=== PATIENT | male | born 1975 | race Two or more races ===

== ENCOUNTER 2025-11-02 20:33 | Inpatient (IN) | payer BC, SELFPAY ==
[2025-11-02] VITALS (8 sets, daily range): BP systolic 191–246; BP diastolic 128–154; PULSE 98–128; RESP 14–93; TEMP 37.1; O2SAT 19–99; BMI 30.5
--- NOTE | 2025-11-02 20:38 | EKG_ITS ---
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
--- NOTE | 2025-11-02 20:38 | XR_ITS ---
Examination: CT brain head without contrast. 2-D sagittal coronal reconstructions Date and time of exam: November 02, 2025, 2041 hours INDICATIONS: Stroke alert, onset slurred speech dizziness left facial droop beginning 1900 hours this evening CTDI: vol (mGy): 53.7 DLP: (mGycm): 1063 Technique: Multiple CT axial sections of the brain have been obtained, 5 mm slice thickness. Contrast has not been administered. 2-D sagittal, coronal reconstructions have been obtained Low dose protocols were performed. One or more of the following dose reduction techniques were used; automated exposure control, adjustment of the mA and/or KV according to patient size, use of iterative reconstruction technique. Findings: No significant ventricular enlargement. Chronic microvascular white matter changes prominent Suspicious for 3 mm old infarct left brainstem pontine level Intra-axial or extra-axial hemorrhage density is not seen. No mass effect or midline shift Basal cisterns are not remarkable. Fourth ventricle is midline. Cranial vault intact. Impression: Negative for acute hemorrhage, mass effect or midline shift As clinically warranted, brain MRI MRA without contrast, stroke protocol, would best assess for demyelinating disease, acute ischemic change
--- NOTE | 2025-11-02 20:38 | XR_ITS ---
EXAMINATION: AP chest single view TECHNIQUE: AP portable upright chest single view Date and time: November 02, 2025, 2112 hours INDICATIONS: Stroke alert FINDINGS: Mild heart failure Mild enlargement cardiac contour Prominent vascular congestion with early septal edema Prominent osteopenia IMPRESSION: Mild heart failure
--- NOTE | 2025-11-02 20:38 | XR_ITS ---
Examination: CTA carotids with intravenous contrast CTA brain, head with intravenous contrast. 2-D sagittal, coronal reconstructions. 3-D reconstructions. Exam date and time: November 02, 2025, 2049 hours INDICATIONS: Stroke alert, onset focal neurologic deficits today including facial droop slurred speech dizziness CTDI: vol (mGy) 19.94 DLP: (mGycm) 536 Technique: Multiple CTA axial brain, head carotid images post intravenous contrast injection 100 cc, [id number]. 2-D sagittal, coronal reconstructions. 3-D reconstructions, 3-D post processing including vascular maximum intensity projection images. Low dose protocols were performed. One or more of the following dose reduction techniques were used; automated exposure control, adjustment of the mA and/or KV according to patient size, use of iterative reconstruction technique. Findings: No significant common carotid carotid bifurcation or internal carotid artery stenoses Dominant left vertebral artery with no critical stenoses Right thyroid cyst versus nodule, 27 mm Intracranial vertebral arteries basilar artery and posterior cerebral branches do fill 90% stenosis P2 segment right posterior cerebral artery Petrous juxtasellar supraclinoid portions internal carotid arteries fill M1 segments middle cerebral arteries middle cerebral artery trifurcation vessels anterior cerebral arteries fill with no large vessel occlusions IMPRESSION: No significant neck arterial stenoses No cerebral large vessel arterial occlusions or thrombus
--- NOTE | 2025-11-02 20:39 | EDNOTE_ITS ---
Neuro Symptoms Deficit-RME/HPI General Chief Complaint: Dizziness Stated Complaint: DIZZINESS, SLURRED SPEECH, FACIAL DROOP Time Seen by Provider: 11/02/25 20:50 Arrival date/time: 11/02/25 20:33 RME / HPI RME / HPI Narrative: See MDM for Dr. Tay's HPI Documentation. Related Data Home Medications ?Medication ?Instructions ?Recorded ?Confirmed No Known Home Medications 11/02/2510/22 Allergies Allergy/AdvReac Type Severity Reaction Status Date / Time No Known Allergies Allergy Verified 11/02/25 20:36 Review of Systems Review of Systems Systems Reviewed: All systems reviewed, normal except as documented Past Medical History Past Medical History CARDIAC: Positive Cardiac Disorders, Hypercholesterolemia and Hypertension ED Exam Narrative Physical exam: See MDM for Dr. Tay's Physical Exam Documentation. Course Quality Measures none Orders Category Date Time Status Bedside Blood Glucose NOW Care 11/02/25 20:38 Active Global Sales Director NOW Care 11/02/25 20:38 Active Continuous Pulse Oximetry NOW Care 11/02/25 20:38 Completed EKG (ED ONLY) *Do not use* NOW Care 11/02/25 20:38 Completed In and Out Catheter NEEDED Care 11/02/25 20:38 Active Insert IV NOW Care 11/02/25 20:38 Active NIH Stroke Scale now Care 11/02/25 20:38 Active NPO NOW Care 11/02/25 20:38 Active Nurse Swallow Screen x1 Care 11/02/25 20:38 Active Consult to Neurology / Tele-Neurology Routine Cons 11/02/25 20:[address] angio stroke protocol Stat Exams 11/02/25 20:[address] stroke protocol Stat Exams 11/02/25 20:38 Completed EKG (ED Only) Stat Exams 11/02/25 20:38 Draft XR chest 1V portable Stat Exams 11/02/25 20:38 Completed A1C [Glycohemoglobin w (eAG)] Routine Lab 11/02/25 20:54 Completed Alcohol, Blood Medical Stat Lab 11/02/25 20:54 Completed B-Type Natriuretic Peptide Stat Lab 11/02/25 20:54 Completed CBC Stat Lab 11/02/25 20:54 Completed Comprehensive Metabolic Panel Stat Lab 11/02/25 20:54 Completed Drug Screen,Urine Stat Lab 11/02/25 22:31 Completed Magnesium Stat Lab 11/02/25 20:54 Completed Partial Thromboplastin Time Stat Lab 11/02/25 20:54 Completed Prothrombin Time with INR Stat Lab 11/02/25 20:54 Completed TSH [Thyroid Stimulating Hormone] Stat Lab 11/02/25 20:54 Completed Troponin I Stat Lab 11/02/25 20:54 Completed Urinalysis, C/S if Indicated Stat Lab 11/02/25 22:31 Completed Aspirin Med 11/02/25 21:16 Discontinued 325 mg PO X1 ONE Clopidogrel [Plavix] Med 11/02/25 21:16 Discontinued 300 mg PO X1 ONE Labetalol* IV [Trandate IV] Med 11/02/25 20:38 Discontinued 10 mg IVP Q15M PRN Labetalol* IV [Trandate IV] Med 11/02/25 21:50 Discontinued 10 mg IVP Q15M PRN Ondansetron Inj [Zofran Inj] Med 11/02/25 20:38 Discontinued 4 mg IVP Q4HR PRN niCARdipine/NS 20MG IVPB [Cardene Ivpb] Med 11/02/25 20:38 Discontinued 20 mg in 200 ml IV 5 mg/hr Oxygen Delivery NOW RT 11/02/25 20:38 Completed Vital Signs Vital signs: Vital Signs Pulse Rate 128 H 11/02/25 20:42 Respiratory Rate 18 11/02/25 20:42 Blood Pressure 246/154 H 11/02/25 20:42 Pulse Oximetry (%) 99 11/02/25 20:42 Oxygen Delivery Method Room Air 11/02/25 20:42 Neuro Symptoms / Deficit MDM Narrative MDM Narrative:: This section includes all my notes and documentations, including HPI, PE, and ED course. Mitchel Tay MD HPI: 50 y/o male with HTN and Hypercholesterolemia (no meds for over 2 years) here with about a week history of left facial droop. 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 No visual impairment. No loss of power in the arms or legs. No chest pain. No other complaints. ROS: All negative except as documented in HPI. Physical Exam: General: Alert and oriented. High BP noted. Eyes: Conjunctivae and lids clear. EOMI. PERRL. ENT: No nasal congestion. Neck: Supple. No carotid bruit. No JVD. Heart: RRR. Lungs: No respiratory distress. Good air movement. No rhonchi, wheezing, rales. Abdomen: Soft and nontender. Skin: Warm and dry. Neuro: Alert and oriented X 3. Left-sided lower facial droop noted. Other cranial nerves grossly intact. No obvious peripheral motor deficits. I reviewed all diagnostic test results: My interpretation of the EKG is: Sinus rhythm (91 bpm) with nonspecific ST-T johnna nges. My interpretation of the chest x-ray is no acute findings. My review of the Head/Brain CT report is infarct at brainstem, pontine level. My review of the Head/Neck CTA report is: No acute findings. Blood tests and urine tests remarkable for K 3.0 and LFT elevation. At this point, diagnoses include: CVA (cerebral vascular accident) Hypertensive emergency Hypokalemia LFT elevation Treatment here included: Aspirin 325 mg PO Plavix 300 mg PO Labetalol IV as needed I discussed the case with telehealth neurologist. About the presentation and exam and diagnostics and treatments here. Recommended admission for further care. I discussed the case with our hospitalist. About the presentation and exam and diagnostics and treatments here. And need of further care in the hospital. Will accept the patient. Mitchel Tay MD Patient data External records reviewed:: [facility] previous records (No prior ED records available for review) Clinical information provided by:: patient Social determinants that could affect healthcare access:: none Patient has the following chronic illnesses:: HTN, Hypercholesterolemia, How is presenting disease/condition affected by chronic disease/condition?: exacerbated by Evaluation data The following diagnostics were reviewed and interpreted by me:: lab results, radiology exam(s) and EKG tracing(s) (My interpretation of the EKG is: Sinus rhythm (91 bpm) with nonspecific ST-T changes. Mitchel Tay MD) Lab and/or radiology exams considered but not ordered:: None Interpretation Summary: I reviewed all diagnostic test results: My interpretation of the EKG is: Sinus rhythm (91 bpm) with nonspecific ST-T changes. My interpretation of the chest x-ray is no acute findings. My review of the Head/Brain CT report is infarct at brainstem, pontine level. My review of the Head/Neck CTA report is: No acute findings. Blood tests and urine tests remarkable for K 3.0 and LFT elevation. Medications / Prescriptions Medications or Prescriptions considered but not ordered:: None Medication administrations:: Medication Administration History Acetaminophen (Acetaminophen 325 Mg Tablet) 650 mg PO Q6H PRN PRN Reason: Fever >101.5 Stop: 12/02/25 21:50 Aspirin (Aspirin Ec 81 Mg Tabec) 81 mg PO QDAY [facility] Stop: 12/03/25 08:59 Last Admin: 11/03/25 09:30 Dose: 81 mg Documented By: SUMI Atorvastatin Calcium (Atorvastatin Calcium 20 Mg Tablet) 80 mg PO HS [facility] Stop: 12/02/25 21:54 Last Admin: 11/03/25 19:58 Dose: 80 mg Documented By: Admin: 11/02/25 22:13 Dose: 80 mg Documented By: MICHAEL Clopidogrel Bisulfate (Clopidogrel Bisulfate 75 Mg Tablet) 75 mg PO QDAY [facility] Stop: 12/03/25 08:59 Last Admin: 11/03/25 09:30 Dose: 75 mg Documented By: SUMI Enoxaparin Sodium (Enoxaparin Sod Inj 40 Mg/0.4 Ml Syringe) 40 mg SC QDAY [facility] Stop: 11/17/25 08:59 Last Admin: 11/03/25 09:30 Dose: 40 mg Documented By: SUMI Labetalol HCl (Labetalol Inj 5 Mg/Ml Vial 4 Ml) 10 mg IVP Q2HR PRN PRN Reason: SBP>220 or DBP>120 Stop: 12/03/25 00:00 Last Admin: 11/03/25 00:53 Dose: 10 mg Documented By: MAHAD Comments: MD VELASQUEZ'D EARLY ADMIN DUE TO BP OF 186/135. Admin: 11/02/25 23:17 Dose: 10 mg Documented By: MICHAEL Ondansetron HCl (Ondansetron Inj 2 Mg/Ml Inj 2 Ml) 4 mg IVP Q4HR PRN PRN Reason: NAUSEA OR VOMITING Stop: 12/02/25 21:50 Discontinued Medications Aspirin (Aspirin 325 Mg Tablet) 325 mg PO X1 ONE Stop: 11/02/25 21:17 Last Admin: 11/02/25 21:26 Dose: 325 mg Documented By: MCIHAEL Clopidogrel Bisulfate (Clopidogrel Bisulfate 75 Mg Tablet) 300 mg PO X1 ONE Stop: 11/02/25 21:17 Last Admin: 11/02/25 21:26 Dose: 300 mg Documented By: MICHAEL Enalaprilat (Enalaprilat Inj 1.25 Mg/Ml Vial) 0.625 mg IVP X1 ONE Stop: 11/02/25 23:12 Last Admin: 11/02/25 23:14 Dose: Not Given Documented By: MICHAEL Non-Admin Reason: Cancelled by Provider Enalaprilat (Enalaprilat Inj 1.25 Mg/Ml Vial) 1.25 mg IVP X1 ONE Stop: 11/02/25 23:13 Last Admin: 11/02/25 23:17 Dose: 1.25 mg Documented By: MICHAEL Nicardipine/Sodium Chloride (Cardene Ivpb) 20 mg in 200 mls @ 50 mls/hr IV .Q4H ONE; Protocol Stop: 11/03/25 00:37 Last Admin: 11/02/25 21:32 Dose: Not Given Documented By: MICHAEL Non-Admin Reason: Cancelled by Provider Lactated Ringer's (Lactated Ringers) 1,000 mls @ 1,000 mls/hr IV .Q1H ONE Stop: 11/02/25 22:53 Last Infusion: 11/03/25 20:46 Dose: Infused Documented By: Admin: 11/02/25 22:13 Dose: 1,000 mls/hr Documented By: MICHAEL Labetalol HCl (Labetalol Inj 5 Mg/Ml Vial 4 Ml) 10 mg IVP Q15M PRN PRN Reason: hypertension Last Admin: 11/02/25 21:26 Dose: 10 mg Documented By: MICHAEL Comments: PER NEUROLOGIST TO KEEP BP LESS THAN 220/120 Labetalol HCl (Labetalol Inj 5 Mg/Ml Vial 4 Ml) 10 mg IVP Q15M PRN PRN Reason: hypertension Last Admin: 11/02/25 21:41 Dose: 10 mg Documented By: MICHAEL Ondansetron HCl (Ondansetron Inj 2 Mg/Ml Inj 2 Ml) 4 mg IVP Q4HR PRN PRN Reason: NAUSEA OR VOMITING Stop: 12/02/25 20:37 Potassium Chloride (Potassium Chloride 10% 20 Meq/15 Ml Udc) 40 meq PO X1 ONE Stop: 11/02/25 21:54 Last Admin: 11/02/25 22:13 Dose: 40 meq Documented By: MICHAEL Treatment here FROM ME included: Aspirin 325 mg PO Plavix 300 mg PO Labetalol IV as needed Consultations Consultation(s) initiated? (list below): Yes Consultation #1 (Physician, Specialty, Details): I discussed the case with telli-neurologist. About the presentation and exam and diagnostics and treatments here. Recommended admission and further care. Time: 20:35 Consultation #2 (Physician, Specialty, Details): I discussed the case with our hospitalist. About the presentation and exam and diagnostics and treatments here. And need of further care in the hospital. Will accept the patient. Time: 21:30 Diagnosis Neuro Differential Diagnosis: convulsions, delirium, subarachnoid hemorrhage, peripheral neuropathy, cerebrovascular accident and transient cerebral ischemia Most likely diagnosis given after review of the tests above:: CVA (cerebral vascular accident) Hypertensive emergency Hypokalemia LFT elevation Admission Indicated Admission indicated?: indicated Explain why admission is indicated or not indicated:: CVA (cerebral vascular accident) Hypertensive emergency Hypokalemia LFT elevation Admission Request Was there a request for admission?: Yes Admission Attestation Admission request attestation: Discussed case with Hospitalist service regarding admission. Discussed patients ED course, exam findings, labs, and radiology results. Agreed to accept the patient for admission. Disposition Plan Disposition Plan: Admit Critical Care Time Critical Care Time Critical Care Time: Yes Total Critical Care Time (min.): 36 Attestation: Due to a high probability of clinically significant, life threatening deterioration, the patient required my highest level of preparedness to intervene emergently and I personally spent this critical care time directly and personally managing the patient. This critical care time included obtaining a history; examining the patient; ordering and review of studies; arranging urgent treatment with development of a management plan; evaluation of patient's response to treatment; frequent reassessment; and discussions with family and other providers. It was exclusive of separately billable procedures and treating other patients and teaching time. Mitchel Tay MD Discharge Plan Plan Patient Disposition: Admit Acute Care w/in Hospital Problem List Clinical Impression: CVA (cerebral vascular accident), Hypertensive emergency, Hypokalemia, LFT elevation
[2025-11-02 21:16] LABS: Basophils # (Auto) 0.2 Thou/mm3 (0.0-0.2); Basophils % (Auto) 2 % (0-2.5); Eosinophils # (Auto) 0.3 Thou/mm3 (0.0-0.5); Eosinophils % (Auto) 3 % (0-10); Hematocrit 47.7 % (41.0-53.0); Hemoglobin 16.3 g/dL (13.5-16.0); Immature Granulocytes Auto 0.02 Thou/mm3 (0.00-0.00); Lymphocytes # (Auto) 3.0 Thou/mm3 (1.0-4.8); Lymphocytes % (Auto) 34 % (10-50); Mean Corpuscular HGB Conc 34.2 g/dl (31.0-37.0); Mean Corpuscular Hemoglobin 30.8 pg (25.0-35.0); Mean Corpuscular Volume 90 fL (80-100); Monocytes # (Auto) 0.8 Thou/mm3 (0.0-0.8); Monocytes % (Auto) 9 % (0-12); Neutrophils # (Auto) 4.8 Thou/mm3 (1.8-7.7); Neutrophils % (Auto) 53 % (37-80); Nucleated Red Blood Cell # 0.00 Thou/mm3 (0.00-0.00); Nucleated Red Blood Cell % 0 /100 WBC (0); Platelet Count 268 Thou/mm3 (140-440); RDW Standard Deviation 43.7 fL (35.1-43.9); Red Blood Count 5.30 Miln/mm3 (4.50-5.90); White Blood Count 9.0 Thou/mm3 (3.8-10.6)
[2025-11-02] MEDS: CLOPIDOGREL BISULFATE 75 MG TABLET 300 MG PO (21:26)
--- NOTE | 2025-11-02 21:26 | PD.TNEURO ---
Tele Neuro Consultation Consultation Date 11/02/25 Most Recent Vital Signs Last Vital Signs Pulse 107 H 11/02/25 21:23 Resp 14 11/02/25 21:23 BP 246/154 H 11/02/25 20:42 Pulse Ox 99 11/02/25 20:42 O2 Del Method Room Air 11/02/25 20:42 Consultation Narrative [facility] Patient Name:???Oh Castaneda Date of :???1975 Identification Number:??? Date of Service:???11/02/2025 20:37:23 Diagnosis:?R47.81 - Slurred speech ?R29.810 - Facial numbness/ Facial weakness ?R42 - Dizziness/ Vertigo/ Giddiness ?I63.89 - Cerebrovascular accident (CVA) due to other mechanism ([facility]) Impression: ?50yo man with history of HTN not on medications presents with dizziness, left facial droop. Dizziness is new tonight but he has noticed left facial droop for the past week. NCCT with 3mm focus right aure that could explain symptoms for the past week as a lacunar subacute infarct but is not definitive. Not a candidate for thrombolytics given the noticed symptoms for the past week which likely represent subacute stroke with some worsening tonight. Likely BP elevated for a while. CTA pending, if negative recommend permissive HTN to <220/120 overnight, start aspirin and plavix, needs admission for stroke work up with MRI brain w/o, check 2d echo. Our recommendations are outlined below. Recommendations: ? Stroke/Telemetry Floor ? Neuro Checks (Q4) ? Bedside Swallow Eval ? DVT Prophylaxis ? Head of Bed 30 Degrees ? Euglycemia and Avoid Hyperthermia (PRN Acetaminophen) ? Bolus with Clopidogrel 300 mg bolus x1 and initiate dual antiplatelet therapy with Aspirin 81 mg daily and Clopidogrel 75 mg daily ? Antihypertensives PRN if Blood pressure is greater than 220/120 or there is a concern for End organ damage/contraindications for permissive HTN. If blood pressure is greater than 220/120 give labetalol PO or IV or Vasotec IV with a goal of 15% reduction in BP during the first 24 hours. ?MRI brain w/o ?2d echo Sign Out: ? Discussed with Emergency Department Provider Advanced Imaging: Advanced imaging has been ordered. Results pending. Metrics: Last Known Well: 10/25/2025 20:00:00 Arrival Time: 11/02/2025 20:33:00 Activation Time: 11/02/2025 20:37:22 Initial Response Time: 11/02/2025 20:42:56Symptoms: dizziness, facial droop. Initial patient interaction: 11/02/2025 20:53:50 NIHSS Assessment Completed: 11/02/2025 20:55:03Patient is not a candidate for Thrombolytic. Thrombolytic Medical Decision: 11/02/2025 20:55:03Patient was not deemed candidate for Thrombolytic because of following reasons: LKW outside 4.[address] Head: CT head unremarkable for acute infarction or hemorrhage per Radiology: negative per radiologist I personally reviewed all the CT images that were available to me and it showed: punctate hypodensity right aure, no ICH, significant WM disease Primary Provider Notified of Diagnostic Impression and Management Plan on: 11/02/2025 21:19:50 History of Present Illness:Patient is a 50 year old Male. Patient was brought by private transportation with symptoms of dizziness, facial droop. 50yo man with history of HTN not on medications presents with dizziness, left facial droop. He reports onset of dizziness at 8pm tonight which has persisted. Family noticed his speech was slurred on a phone call and took him to the ED for evaluation. Patient reports last he noticed drooping in the left side of his face along with some numbness. He was hoping it would go away but he feels like it persisted at least a week and is vague about if any of this was present earlier today as well. He lives by himself. He has not had the dizziness before however. He is not taking any medications presently including no antiplatelet agents. He last saw his PCP 2 years ago and has not been taking any antihypertensives. His BP has not been checked in more than a year. Past Medical History: ?Hypertension Medications: No Anticoagulant use? No Antiplatelet use Reviewed EMR for current medications Allergies:? Reviewed Social History: Drug Use: No Family History: There Is Family History Of:mother with history of stroke There is no family history of premature cerebrovascular disease pertinent to this consultation ROS : 14 Points Review of Systems was performed and was negative except mentioned in HPI. Past Surgical History: There Is No Surgical History Contributory To Today?s Visit Examination: BP(246/154),?Pulse(128),?Blood Glucose(137) 1A: Level of Consciousness - Alert; keenly responsive?+ 0 1B: Ask Month and Age - Both Questions Right?+ 0 1C: Blink Eyes & Squeeze Hands - Performs Both Tasks?+ 0 2: Test Horizontal Extraocular Movements - Normal?+ 0 3: Test Visual Cruz - No Visual Loss?+ 0 4: Test Facial Palsy (Use Grimace if Obtunded) - Partial paralysis (lower face)?+ 2 5A: Test Left Arm Motor Drift - No Drift for 10 Seconds?+ 0 5B: Test Right Arm Motor Drift - No Drift for 10 Seconds?+ 0 6A: Test Left Leg Motor Drift - No Drift for 5 Seconds?+ 0 6B: Test Right Leg Motor Drift - No Drift for 5 Seconds?+ 0 7: Test Limb Ataxia (FNF/Heel-Nascimento) - No Ataxia?+ 0 8: Test Sensation - Mild-Moderate Loss: Less Sharp/More Dull?+ 1 9: Test Language/Aphasia - Normal; No aphasia?+ 0 10: Test Dysarthria - Mild-Moderate Dysarthria: Slurring but can be understood?+ 1 11: Test Extinction/Inattention - No abnormality?+ 0 NIHSS Score:?4 NIHSS Free Text :?left facial droop, mild dysarthria, inconsistent on if sensation is reduced left facem eye closure is symmetric Pre-Morbid Modified Garvin Scale: 0 Points = No symptoms at all Spoke with :?Dr. Tay This consult was conducted in real time using interactive audio and video technology. Patient was informed of the technology being used for this visit and agreed to proceed. Patient located in hospital and provider located at home/office setting. Patient is being evaluated for possible acute neurologic impairment and high probability of imminent or life-threatening deterioration. I spent total of 45 minutes providing care to this patient, including time for face to face visit via telemedicine, review of medical records, imaging studies and discussion of findings with providers, the patient and/or family. Dr Teo Lee [facility] For Inpatient follow-up with [facility] physician please call [facility] at . As we are not an outpatient service for any post hospital discharge needs please contact the hospital for assistance. If you have any questions for the [facility] physicians or need to reconsult for clinical or diagnostic changes please contact us via [facility] at . Non-radiologist review of imaging performed to assist with emergent clinical decision-making. Remote physician workstations do not possess the same resolution, calibration, or diagnostic capabilities as hospital-based radiology reading stations, and formal radiologist read is necessary. Signature :Musa Lee
[2025-11-02 21:27] LABS: INR 1.0 (0.9-1.3); Partial Thromboplastin Time 22.9 Seconds (22.0-36.0); Prothrombin Time 10.3 Seconds (9.0-12.2)
[2025-11-02 21:34] LABS: B-Type Natriuretic Peptide 57 pg/mL (0-100)
[2025-11-02 21:43] LABS: Alanine Aminotransferase 71 U/L (10-49); Albumin, Serum 4.8 gm/dL (3.5-5.0); Albumin/Globulin Ratio 1.8 (1.2-2.2); Alcohol, Blood Medical < 3.0 mg/dL (0-10.0); Alkaline Phosphatase 175 U/L (46-116); Anion Gap 14 (7-16); Aspartate Amino Transferase 48 U/L (0-34); BUN/Creatinine Ratio 11 Ratio (12-20); Bilirubin,Total 1.1 mg/dL (0.3-1.2); Blood Urea Nitrogen 13 mg/dL (9-23); Calcium 9.7 mg/dL (8.3-10.6); Calcium (Corrected) 9.7 mg/dL (8.5-10.1); Carbon Dioxide 23.2 mMol/L (20.0-31.0); Chloride 105 mMol/L (98-107); Creatinine (Component) 1.2 mg/dL (0.6-1.3); Estimated Creatinine Clearance 87.5 mL/min (>60); Globulin 2.7 gm/dL (2.3-3.5); Glucose 138 mg/dL (74-106); Magnesium 2.2 mg/dL (1.6-2.6); Osmolality,Calculated 285 (275-295); Potassium 3.0 mMol/L (3.4-5.1); Sodium 142 mMol/L (136-145); Thyroid Stimulating Hormone 0.75 uIU/mL (0.55-4.78); Total Protein 7.5 gm/dL (5.7-8.2); Troponin I < 0.020 ng/mL (0.0-0.045); eGFR > 60 See Note
--- NOTE | 2025-11-02 21:48 | ESHP_ITS ---
Documentation for date of: 11/02/25 HPI - Hospitalist History of Present Illness History of present illness: 50 yo man with history of HTN not on medications presents with dizziness, left facial droop. Dizziness started today while returning from work, but reprots left facial droop for the past week, along with left side facial droop. Patient denies any other neurosymptoms; visual changes, motor strength/sensation changes, chest pain/palpitations/shortness of breath. In the ED patient's vitals were noted for BP 250/150, HR 128, labs showed normal CBC, potassium 3, AST 48, ALT 71, ALP 175, EKG showed sinus rhythm, head CT was negative for acute hemorrhage, mass effect or midline shift but showed lesions suspicious for old infarct in left brainstem, CTA was negative for LVO/thrombus. Neurology was consulted in the ED and recommended admitting patient for CVA workup. Review of Systems Review of Systems Systems Reviewed: All systems reviewed, normal except as documented Past Medical History Past Medical History CARDIAC: Positive Cardiac Disorders, Hypercholesterolemia and Hypertension Meds Home Medications and Allergies Home Medications ?Medication ?Instructions ?Recorded ?Confirmed ?Type No Known Home Medications 11/02/2510/22 History Allergies Allergy/AdvReac Type Severity Reaction Status Date / Time No Known Allergies Allergy Verified 11/02/25 20:36 Exam Vital Signs Pulse Resp BP Pulse Ox O2 Del Method 107 H 14 214/132 H 19 L Room Air 11/02/25 21:23 11/02/25 21:23 11/02/25 21:30 11/02/25 21:30 11/02/25 20:42 Narrative General: Well appearing, well nourished, in no distress, normal mood and affect. HEENT: Normocephalic, atraumatic, anicteric, EOM intact, PERRLA, moist mucous membranes. Heart: RRR, no murmur or gallop. Lungs: Clear to auscultation with equal breath sounds bilaterally. Abdomen: Bowel sounds normal, soft, non distended, no tenderness or guarding, no CVA tenderness Extremities: Sensation, circulation &motor function intact and equal in all extremities. Neurologic: Alert and oriented to name, place and date of , CN II-XII intact, able to move all extremities, DTRs normal, left facial droop noted. Skin: Warm, dry, no rashes or ecchymosis noted. Results - Hospitalist Labs Diagrams: 11/02/25 20:54 11/02/25 20:54 Labs: Short CBC 11/02/25 Range/Units 20:54 WBC 9.0 (3.8-10.6) Thou/mm3 Hgb 16.3 H (13.5-16.0) g/dL Hct 47.7 (41.0-53.0) % Plt Count 268 (140-440) Thou/mm3 BMP 11/02/25 20:54 Sodium 142 Potassium 3.0 L Chloride 105 Carbon Dioxide 23.2 BUN 13 Creatinine 1.2 Glucose 138 H Calcium 9.7 Cardiac Enzymes 11/02/25 Range/Units 20:54 Troponin I < 0.020 (0.0-0.045) ng/mL Liver Function 11/02/25 Range/Units 20:54 Total Bilirubin 1.1 (0.3-1.2) mg/dL AST 48 H (0-34) U/L ALT 71 H (10-49) U/L Alkaline Phosphatase 175 H (46-116) U/L Albumin 4.8 (3.5-5.0) gm/dL Assessment & Plan -Hospitalist Additional Plan Additional Plan: 50 yo man with history of HTN not on medications presents with dizziness, left facial droop admitted for CVA workup. # Suspected Ischemic Stroke # CVA vs TIA Subacute, likely lacunar/pontine per tele neuro 50M with one week of left facial droop and acute dizziness/slurred speech, NIHSS 4 CT/CTA without acute large vessel occlusion per radiology read, now neurologically improved except for residual facial droop. CTA findings with 90% stenosis P2 segment right posterior cerebral artery CT findings with Suspicious for 3 mm old infarct left brainstem pontine level MRI LDL 105, above goal for secondary stroke prevention. Plan: * Continue dual antiplatelet therapy: Aspirin 81 mg daily, Clopidogrel 75 mg daily. * Continue atorvastatin 80 mg nightly * MRI brain without contrast pending, follow up results * 2D echocardiogram pending * Telemetry monitoring * Neuro checks Q4h * Head of bed at 30 * Maintain euglycemia and normothermia * PT and Speech evaluation per neuro # Hypertensive Urgency # Uncontrolled Hypertension Presented with severe hypertension likely longstanding Currently improved without evidence of acute end-organ damage. Plan: * Continue permissive hypertension in acute stroke window * PRN antihypertensives only if BP >220/120 * Plan to initiate long-term oral antihypertensive regimen after acute stroke period (23:00) * Criminal Justice Social Worker on medication compliance # Hypokalemia, Resolved Initial potassium 3.0, corrected. today K 4.3 Plan: * No further repletion needed * Continue to monitor BMP # Mild Transaminitis, Improving LFTs down-trending, likely related to hypertensive emergency or ischemic stress. Plan: * Continue to trend CMP * No acute intervention Health Maintenance: Diet: Dysphagia 3 DVT Prophylaxis: Lovenox Code Status: Full code Disposition: Pending MRI brain and echocardiogram results Quality Measures Quality Measures VTE prophylaxis and stroke Suspected type of Stroke: Acute Ischemic Last known well (date): 10/29/25 Tenecteplase given: Reason(s) Tenecteplase not given: Outside the time window not given Rehab services: PT evaluation ordered VTE Prophylaxis: pharmaceutical Antithrombotic by day 2:: ordered Statin ordered: >75 y/o moderate or high intensity dose Anticoagulation ordered for A-fib or flutter (current or hx): not indicated
--- NOTE | 2025-11-02 21:53 | ECHO_ITS ---
Patient Info Name: Oh Castaneda Age: 50 years : 1975 Gender: Male Ht: 180 cm Wt: 99 kg BSA: 2.26 m2 BP: 176 / 121 mmHg HR: 76 bpm Exam Date: 11/04/2025 10:02 AM Admit Date: 11/02/2025 Site: Room Number: 268 Patient Status: I Exam Type: CA echo doppler complete Job Placement Counselor: Lori Trejo Ordering Physician: De Avalos Study Info Indications CVA work up - Contrast/Agitated Saline Contrast/Ag. Saline: Agitated Saline Amount: --- ml IV Access Condition: patent with no signs of infiltration Primary Location: S2NX Left Ventricular Outflow Tract Name Value Normal LVOT 2D LVOT Diameter 2.3 cm LVOT Doppler LVOT Peak Velocity 92 cm/s LVOT Mean Gradient 2 mmHg LVOT VTI 19 cm LVOT VTI/AV VTI Ratio 0.6 LVOT Stroke Volume 77 ml Pulmonic Valve Name Value Normal PV Doppler PV Peak Velocity 90 cm/s Mitral Valve Name Value Normal MV Doppler MV Decel [place] 262 cm/s2 MV PHT 60 ms MV Area (PHT) 3.6 cm2 4.0-5.0 MV Diastolic Function MV E Peak Velocity 54 cm/s MV A Peak Velocity 78 cm/s MV E/A 0.7 MV Annular TDI MV Septal e' Velocity 5.8 cm/s MV E/e' (Septal) 9.4 MV Lateral e' Velocity 9.8 cm/s MV E/e' (Lateral) 5.5 MV e' Average 7.78 cm/s MV E/e' (Average) 7.5 Tricuspid Valve Name Value Normal TV Regurgitation Doppler TR Peak Velocity 182 cm/s Estimated PAP/RSVP RA Pressure 3 mmHg <=5 PA Systolic Pressure 16 mmHg <36 RV Systolic Pressure 16 mmHg <36 TV Annular TDI TV Lateral Irena s' Velocity 12.9 cm/s >=9.5 Aorta Name Value Normal Thoracic Aorta Distal Ao Arch Diameter 3.7 cm Aortic Valve Name Value Normal AV 2D/MM AV Cusp Sep (MM) 2.2 cm AV Doppler AV Peak Velocity 149 cm/s AV Mean Gradient 6 mmHg AV VTI 29 cm AV Area (Cont Eq VTI) 2.6 cm2 >=3.0 AV Area (Cont Eq Rios) 2.6 cm2 AV DI (Rios) 0.61 AV Regurgitation 2D LVOT Area 4.2 cm2 AV Regurgitation Doppler AR Decel [place] 249 cm/s2 AR PHT 320 ms Ventricles Name Value Normal LV Dimensions 2D/MM IVS Diastolic Thickness (2D) 1.4 cm 0.6-1.0 LVID Diastole (2D) 4.3 cm 4.2-5.8 LVIW Diastolic Thickness (2D) 1.4 cm 0.6-1.0 LVID Systole (2D) 3.1 cm 2.5-4.0 LVOT Diameter 2.3 cm LV Mass (2D Cubed) 232.23 g 88.00-224.00 LV Mass Index (2D Cubed) 103 g/m2 49-115 Relative Wall Thickness (2D) 0.65 <=0.42 IVS/LVIW Diastolic Thickness (2D) 1.00 0.00-1.50 LV Fractional Shortening/Ejection Fraction 2D/MM LV Fractional Shortening (2D) 28 % 25-43 LV EF (2D Teichholz) 54 % RV Dimensions 2D/MM TV Lateral Irena s' Velocity 12.9 cm/s >=9.5 Atria Name Value Normal LA Dimensions LA Volume (4C A-L) 26 ml LA Volume (BP A-L) 38 ml Left Ventricle Left ventricular chamber dimension is normal. Left ventricular systolic function is normal with visually estimated ejection fraction of 55-60%. There is moderate concentric hypertrophy noted in the left ventricle. Left ventricular segmental wall motion is normal. There is grade I diastolic dysfunction in the left ventricle. Right Ventricle Right ventricular chamber dimension is normal. Right ventricular systolic function is normal. Left Atrium Left atrial chamber dimension is mildly enlarged. Right Atrium Right atrial chamber dimension is normal. Aortic Valve The aortic valve is trileaflet. There is no aortic valve sclerosis. There is no aortic valve stenosis with a peak velocity of 149 cm/s, mean gradient of 6 mmHg, and aortic valve area of 2.6 cm2. There is moderate aortic valve regurgitation. Pulmonic Valve The pulmonic valve is normal. There is no pulmonic valve stenosis. There is no pulmonic regurgitation. Mitral Valve The mitral valve has normal leaflets. There is no mitral valve stenosis. There is trace mitral valve regurgitation. Tricuspid Valve The tricuspid valve leaflets are normal. There is no tricuspid valve stenosis. There is trace tricuspid valve regurgitation. No pulmonary hypertension, estimated pulmonary arterial systolic pressure is 16 mmHg and systemic blood pressure of 176 mmHg in systole. Pericardium/Pleural The pericardium appears normal. There is trivial pericardial effusion with no tamponade. No pleural effusion visualized. Inferior Vena Cava Normal inferior vena cava with >50% collapse upon inspiration consistent with normal right atrial pressure, 3 mmHg. Aorta The aortic measurements are indexed to age and body surface area. The aortic root at the sinus of Valsalva is not well visualized. The prox ascending aorta is not well visualized. The descending aortic arch is dilated measuring 3.7 cm. Summary 1. Left ventricle size is normal and systolic function is normal. Estimated ejection fraction is 55-60%. There is grade I diastolic dysfunction. There is moderate concentric hypertrophy noted. 2. Right ventricle chamber size is normal and systolic function is normal. Estimated RVSP is 16 mmHg. 3. There is moderate aortic valve regurgitation. 4. There is trace tricuspid valve regurgitation. 5. The left atrium is mildly enlarged. The right atrium is normal. 6. Normal IVC with estimated RA pressure 3 mmHg. 7. NEGATIVE BUBBLE STUDY No evidence of PFO. Report Signatures Finalized by Melissa Emery on 11/04/2025 02:57 PM
[2025-11-02] MEDS: ATORVASTATIN CALCIUM 20 MG TABLET 80 MG PO (22:13)
[2025-11-02] MEDS: POTASSIUM CHLORIDE 10% 20 MEQ/15 ML UDC 40 MEQ PO (22:13)
[2025-11-02] MEDS: RINGERS LACTATED 1000 ML 1,000 ML IV (22:13)
[2025-11-02 22:16] LABS: Glucose Estimated Average 108 mg/dL (80-131); Hemoglobin A1C 5.4 % Hgb (4.8-6.0)
[2025-11-02 22:36] LABS: Collection Type, Urine Clean Catch; Squamous Epithelial Cell,Urine 0 /hpf (0-5)
[2025-11-02 22:40] LABS: Bilirubin,Urine Negative (Negative); Blood,Urine 2+ (Negative); Clarity,Urine Clear (Clear/Hazy); Color,Urine Lt-Yellow (Lt Yel-Yel); Culture Indicated,Urine Not Indicated; Glucose, Urine Trace (Negative); Ketones,Urine Negative (Negative); Leukocyte Esterase,Urine Negative (Negative); Nitrite,Urine Negative (Negative); PH,Urine 7.0 (5.0-7.0); Protein,Urine Trace (Neg - Trace); RBC,Urine 40 /hpf (0-3); Specific Gravity,Urine 1.043 (1.001-1.035); Urobilinogen,Urine Negative mg/dL (0.0-1.0); WBC,Urine 1 /hpf (0-5)
[2025-11-02 22:46] LABS: Amphetamine/Methamp Scrn,U Negative (Negative); Barbiturate Screen,Urine Negative (Negative); Benzodiazepines Screen,Urine Negative (Negative); Benzoylecgonine Screen, Ur Negative (Negative); Fentanyl Screen,Urine Negative (Negative); Opiate Screen,Urine Negative (Negative); THC Screen,Urine Negative (Negative)
[2025-11-02] MEDS: ENALAPRILAT INJ 1.25 MG/ML VIAL IVP (23:17)
[2025-11-03] VITALS: BP 186/130; PULSE 95; PULSE 98; RESP 21; TEMP 37.4; O2SAT 95
--- NOTE | 2025-11-03 | XR_ITS ---
Examinations: MRI Brain without intravenous contrast. MRA brain without intravenous contrast. MRA carotids without intravenous contrast 3-D vascular reconstructions Date and time of exam: November 03, 2025, 0821 hours INDICATIONS: Stroke alert onset last week, left-sided facial droop and dizziness Technique: Multiple axial and sagittal images of the brain have been obtained MRA brain carotid images without contrast obtained, including 3-D postprocessing, vascular maximum intensity projection images Findings: Sell[place] is not enlarged. The optic chiasm and infundibular stalk are not remarkable. Prepontine and interpeduncular cisterns are not enlarged. No localized enlargement of the medulla or aure. Fourth ventricle and cerebellar tonsils normal in position. Subacute hemorrhage is not seen. Fourth ventricle is midline. Mass in the cerebellopontine angle region is not evident. 7th and 8th nerve complexes exhibits symmetry. Globes are symmetrical with no retro-orbital mass. Increased white matter signal very prominent Diffusion-weighted images demonstrate 4 mm focus of restricted diffusion right basal ganglia Mass-effect upon the ventricular system is not identified. MRA carotid images no critical carotid stenoses. MRA brain images no large vessel occlusions Impression: 4 mm focus restricted diffusion right basal ganglia most consistent with acute infarct Very prominent foci increased signal in the white matter seen with demyelinating disease, recommend neurology consultation and correlation with clinical findings
[2025-11-03 04:00] VITALS: BP 152/108; PULSE 87; PULSE 96; RESP 20; TEMP 37.1; O2SAT 95
[2025-11-03 06:00] VITALS: BMI 29.5
[2025-11-03 07:03] LABS: Basophils # (Auto) 0.1 Thou/mm3 (0.0-0.2); Basophils % (Auto) 1 % (0-2.5); Eosinophils # (Auto) 0.1 Thou/mm3 (0.0-0.5); Eosinophils % (Auto) 1 % (0-10); Hematocrit 45.0 % (41.0-53.0); Hemoglobin 15.2 g/dL (13.5-16.0); Immature Granulocytes Auto 0.04 Thou/mm3 (0.00-0.00); Lymphocytes # (Auto) 1.1 Thou/mm3 (1.0-4.8); Lymphocytes % (Auto) 12 % (10-50); Mean Corpuscular HGB Conc 33.8 g/dl (31.0-37.0); Mean Corpuscular Hemoglobin 30.6 pg (25.0-35.0); Mean Corpuscular Volume 91 fL (80-100); Monocytes # (Auto) 0.6 Thou/mm3 (0.0-0.8); Monocytes % (Auto) 7 % (0-12); Neutrophils # (Auto) 7.2 Thou/mm3 (1.8-7.7); Neutrophils % (Auto) 80 % (37-80); Nucleated Red Blood Cell # 0.00 Thou/mm3 (0.00-0.00); Nucleated Red Blood Cell % 0 /100 WBC (0); Platelet Count 241 Thou/mm3 (140-440); RDW Standard Deviation 44.1 fL (35.1-43.9); Red Blood Count 4.97 Miln/mm3 (4.50-5.90); White Blood Count 9.1 Thou/mm3 (3.8-10.6)
[2025-11-03 07:24] LABS: Alanine Aminotransferase 63 U/L (10-49); Albumin, Serum 4.3 gm/dL (3.5-5.0); Albumin/Globulin Ratio 1.7 (1.2-2.2); Alkaline Phosphatase 155 U/L (46-116); Anion Gap 10 (7-16); Aspartate Amino Transferase 42 U/L (0-34); BUN/Creatinine Ratio 11 Ratio (12-20); Bilirubin,Total 1.3 mg/dL (0.3-1.2); Blood Urea Nitrogen 11 mg/dL (9-23); Calcium 8.8 mg/dL (8.3-10.6); Calcium (Corrected) 8.8 mg/dL (8.5-10.1); Carbon Dioxide 25.0 mMol/L (20.0-31.0); Cardiac Risk Estimate 2.3 RATIO (4.0-6.7); Chloride 106 mMol/L (98-107); Cholesterol 201 mg/dL (132-200); Creatinine (Component) 1.0 mg/dL (0.6-1.3); Estimated Creatinine Clearance 103.4 mL/min (>60); Globulin 2.5 gm/dL (2.3-3.5); Glucose 127 mg/dL (74-106); HDL Cholesterol 86 mg/dL (40-60); LDL Cholesterol,Calculated 105 mg/dL (0-130); Osmolality,Calculated 282 (275-295); Potassium 4.3 mMol/L (3.4-5.1); Sodium 141 mMol/L (136-145); Total Protein 6.8 gm/dL (5.7-8.2); Triglycerides 49 mg/dL (30-150); eGFR > 60 See Note
[2025-11-03 08:00] VITALS: BP 169/115; PULSE 84; RESP 17; TEMP 36.9; O2SAT 98
[2025-11-03] MEDS: ASPIRIN EC 81 MG TABEC PO (09:30)
[2025-11-03] MEDS: ENOXAPARIN SOD INJ 40 MG/0.4 ML SYRINGE SC (09:30)
[2025-11-03] MEDS: CLOPIDOGREL BISULFATE 75 MG TABLET PO (09:30)
--- NOTE | 2025-11-03 10:37 | PC.SS ---
Patient is a 50 year old male patient presenting to the hospital for CVA. FORMAL SERVICE WAITER introduced self, role, and reason for visit. Patient confirmed demographic information and stated that he lives at home alone. Patient stated that in case he is unable to make medical decisions on his own he would like his cousin Kimberly Pertty [phone] to make them and confirmed he would like to keep other emergency contact numbers on face sheet. Patient stated he does not use DME at home. His PCP is [facility] but has not had appointment in two years. Patient?s pharmacy is [facility]. Once medically clear patient would like to return home and his nephew will provide transportation. Decision maker: Kimberly Pretty [phone] PCP: MARK D/c: home ?
--- NOTE | 2025-11-03 11:34 | ESPR_ITS ---
<Statement entered by Larry Cho MD - 11/03/25 13:46> Patient was examined and case was reviewed with team including attending physician. Note reviewed, I agree with most of its contents and agree with the patient's care as documented by Dr. Myrick Patient seen today at the bedside found awake, alert, orientedx3. No overnight events reported. No focal deficits noted on physical exam, strength equal on all 4 extremities. Vital signs and labs reviewed. MRI obtained pending read at this time. Case discussed with my attending Dr. Charo Cho MD PGY-2 Disclaimer: Despite multiple revisions, due to the dictation software being used, the document bellow may not be free of grammatical errors including phonetic/typographic errors. However, this does not deter from our commitment to providing health care in the patient's best interest in mind. Documentation for date of: 11/03/25 Subjective Subjective Interval history: Patient seen at bedside after returning from MRI. He reports no dizziness today and states his speech is no longer slurred. He continues to have left-sided facial droop, though numbness on the left side of his face is improving. He denies tingling, new weakness, headache, vision changes, chest pain, or shortness of breath. He has been eating without difficulty and reports no trouble swallowing. Overall, he feels improved compared to presentation. Exam Vital Signs Temp Pulse Resp BP Pulse Ox O2 Del Method 98.4 F 84 17 169/115 H 98 Room Air 11/03/25 08:00 11/03/25 08:00 11/03/25 08:00 11/03/25 08:00 11/03/25 08:00 11/03/25 04:00 Narrative Exam General: Awake, alert, in no acute distress HEENT: Pupils equal and reactive, EOMI Neck: Supple, no JVD Cardiac: Regular rate and rhythm, no murmurs Lungs: Clear to auscultation bilaterally Abdomen: Soft, non-tender, non-distended Extremities: No edema Neurologic: Alert and oriented ?3, persistent left facial droop, speech clear without dysarthria, strength 5/5 in all extremities, sensation grossly intact with mild residual decreased sensation on left face, no pronator drift Skin: Warm and dry Objective Labs 11/03/25 06:18 11/03/25 06:18 Labs: Laboratory Results - last 24 hr 11/02/25 11/02/25 11/03/25 20:54 22:31 06:18 WBC 9.0 9.1 RBC 5.30 4.97 Hgb 16.3 H 15.2 Hct 47.7 45.0 MCV 90 91 MCH 30.8 30.6 MCHC 34.2 33.8 RDW Std Deviation 43.7 44.1 H Plt Count 268 241 Neut % (Auto) 53 80 Lymph % (Auto) 34 12 [place] % (Auto) 9 7 Eos % (Auto) 3 1 Baso % (Auto) 2 1 Neut # (Auto) 4.8 7.2 Lymph # (Auto) 3.0 1.1 [place] # (Auto) 0.8 0.6 Eos # (Auto) 0.3 0.1 Baso # (Auto) 0.2 0.1 Immature Gran # (Auto) 0.02 H 0.04 H Absolute Nucleated RBC 0.00 0.00 Immature Gran % 0 0 Nucleated RBC % 0 0 PT 10.3 INR 1.0 APTT 22.9 Sodium 142 141 Potassium 3.0 L 4.3 D Chloride 105 106 Carbon Dioxide 23.2 25.0 Anion Gap 14 10 BUN 13 11 Creatinine 1.2 1.0 Estim Creat Clear Calc 87.5 103.4 eGFR > 60 > 60 BUN/Creatinine Ratio 11 L 11 L Glucose [address] Glu mg/dL 108 Hemoglobin A1c 5.4 Calculated Osmolality 285 282 Calcium 9.7 8.8 Corrected Calcium 9.7 8.8 Magnesium 2.2 Total Bilirubin 1.1 1.3 H AST 48 H 42 H ALT 71 H 63 H Alkaline Phosphatase 175 H 155 H D Troponin I < 0.020 B-Natriuretic Peptide 57 Total Protein 7.5 6.8 Albumin 4.8 4.3 D Globulin 2.7 2.5 Albumin/Globulin Ratio 1.8 1.7 Triglycerides 49 Cholesterol 201 H LDL Cholesterol, Calc 105 HDL Cholesterol 86 H Cholesterol/HDL Ratio 2.3 L TSH 0.75 Ur Collection Type Clean Catch Urine Color Lt-Yellow Urine Clarity Clear Urine pH 7.0 Ur Specific [place] 1.043 H Urine Protein Trace Urine Glucose (UA) Trace Urine Ketones Negative Urine Blood 2+ A Urine Nitrite Negative Urine Bilirubin Negative Urine Urobilinogen (Auto) Negative Ur Leukocyte Esterase Negative Urine RBC 40 H Urine WBC 1 Ur Squamous Epith Cells 0 Urine Bacteria None Ur Culture Indicated? Not Indicated Urine Opiates Screen Negative Urine Fentanyl Screen Negative Ur Barbiturates Screen Negative U Amphetamin/Meth Scrn Negative U Benzodiazepines Scrn Negative U Cocaine Metab Screen Negative U Marijuana (THC) Screen Negative Ethyl Alcohol < 3.0 Quality Measures Quality Measures VTE prophylaxis and stroke Suspected type of Stroke: Acute Ischemic Last known well (date): 10/29/25 Tenecteplase given: Reason(s) Tenecteplase not given: Outside the time window not given Rehab services: PT evaluation ordered VTE Prophylaxis: pharmaceutical Antithrombotic by day 2:: not indicated (describe) Statin ordered: >75 y/o moderate or high intensity dose Anticoagulation ordered for A-fib or flutter (current or hx): ordered Assessment & Plan Assessment Current Active Medications: Generic Name Dose Route Start Last Admin Trade Name Freq PRN Reason Stop Dose Admin Acetaminophen 650 mg 11/02/25 21:51 Acetaminophen 325 Mg Tablet PO 12/02/25 21:50 Q6H PRN Fever >101.5 Aspirin 81 mg 11/03/25 09:00 11/03/25 09:30 Aspirin Ec 81 Mg Tabec PO 12/03/25 08:59 81 mg QDAY JAG Administration Atorvastatin Calcium 80 mg 11/02/25 21:55 11/02/25 22:13 Atorvastatin Calcium 20 Mg Tablet PO 12/02/25 21:54 80 mg HS JAG Administration Clopidogrel Bisulfate 75 mg 11/03/25 09:00 11/03/25 09:30 Clopidogrel Bisulfate 75 Mg Tablet PO 12/03/25 08:59 75 mg QDAY JAG Administration Enoxaparin Sodium 40 mg 11/03/25 09:00 11/03/25 09:30 Enoxaparin Sod Inj 40 Mg/0.4 Ml Syringe SC 11/17/25 08:59 40 mg QDAY JAG Administration Labetalol HCl 10 mg 11/02/25 23:12 11/03/25 00:53 Labetalol Inj 5 Mg/Ml Vial 4 Ml IVP 12/03/25 00:00 10 mg Q2HR PRN Administration SBP>220 or DBP>120 Ondansetron HCl 4 mg 11/02/25 21:51 Ondansetron Inj 2 Mg/Ml Inj 2 Ml IVP 12/02/25 21:50 Q4HR PRN NAUSEA OR VOMITING Plan 50-year-old male with uncontrolled hypertension presenting with subacute left facial droop and acute dizziness/slurred speech, NIHSS 4, imaging without acute hemorrhage, suspected subacute ischemic stroke (pontine/lacunar), currently neurologically improved and stable, admitted for stroke workup with MRI pending. # Suspected Ischemic Stroke # CVA vs TIA Subacute, likely lacunar/pontine per tele neuro 50M with one week of left facial droop and acute dizziness/slurred speech, NIHSS 4 CT/CTA without acute large vessel occlusion per radiology read, now neurologically improved except for residual facial droop. CTA findings with 90% stenosis P2 segment right posterior cerebral artery CT fimdings with Suspicious for 3 mm old infarct left brainstem pontine level MRI pending read LDL 105, above goal for secondary stroke prevention. Plan: * Continue dual antiplatelet therapy: Aspirin 81 mg daily, Clopidogrel 75 mg daily. * Continue atorvastatin 80 mg nightly * MRI brain without contrast pending, follow up results * 2D echocardiogram pending * Telemetry monitoring * Neuro checks Q4h * Head of bed at 30 * Maintain euglycemia and normothermia * PT and Speech evaluation per neuro # Hypertensive Urgency # Uncontrolled Hypertension Presented with severe hypertension likely longstanding Currently improved without evidence of acute end-organ damage. Plan: * Continue permissive hypertension in acute stroke window * PRN antihypertensives only if BP >220/120 * Plan to initiate long-term oral antihypertensive regimen after acute stroke period (23:00) * Contract Administration Coordinator on medication compliance # Hypokalemia, Resolved Initial potassium 3.0, corrected. today K 4.3 Plan: * No further repletion needed * Continue to monitor BMP # Mild Transaminitis, Improving LFTs down-trending, likely related to hypertensive emergency or ischemic stress. Plan: * Continue to trend CMP * No acute intervention Health Maintenance: Diet: Dysphagia 3 DVT Prophylaxis: Lovenox Code Status: Full code Disposition: Pending MRI brain and echocardiogram results ----- Plan discussed with attending physician Dr. Mancilla and senior resident Dr. Contreras Myrick MD PGY-1 Internal Medicine Attending Provider Attestation/Addendum I have seen and examined the patient. I was physically present for the peres portions of the services provided including history, physical exam, diagnosis, treatment plans and orders. I agree with assessment and plan of care as documented by residents. Even though this this note was carefully revised there may still be minor errors in application technical designer due to voice recognition software. Brendan Mancilla MD
[2025-11-03 12:00] VITALS: BP 160/113; PULSE 80; PULSE 90; RESP 17; TEMP 36.1; O2SAT 97
[2025-11-03 16:00] VITALS: BP 170/113; PULSE 70; PULSE 76; RESP 18; TEMP 36.9; O2SAT 99
--- NOTE | 2025-11-03 17:13 | PD.VPROG1 ---
Telemedicine visit statement This visit was conducted with the use of interactive audio and video telecommunications system that permits real time communication between the patient and the provider. Patient's verbal consent for virtual visit was obtained on 11/03/25 at 1713. Documentation for date of: 11/03/25 Virtual exam Vital Signs Temp Pulse Resp BP Pulse Ox O2 Del Method 98.4 F 70 18 170/113 H 99 Room Air 11/03/25 16:00 11/03/25 16:00 11/03/25 16:00 11/03/25 16:00 11/03/25 16:00 11/03/25 12:00 Objective Labs 11/03/25 06:18 11/03/25 06:18 Labs: Laboratory Results - last 24 hr 11/02/25 11/02/25 11/03/25 20:54 22:31 06:18 WBC 9.0 9.1 RBC 5.30 4.97 Hgb 16.3 H 15.2 Hct 47.7 45.0 MCV 90 91 MCH 30.8 30.6 MCHC 34.2 33.8 RDW Std Deviation 43.7 44.1 H Plt Count 268 241 Neut % (Auto) 53 80 Lymph % (Auto) 34 12 [place] % (Auto) 9 7 Eos % (Auto) 3 1 Baso % (Auto) 2 1 Neut # (Auto) 4.8 7.2 Lymph # (Auto) 3.0 1.1 [place] # (Auto) 0.8 0.6 Eos # (Auto) 0.3 0.1 Baso # (Auto) 0.2 0.1 Immature Gran # (Auto) 0.02 H 0.04 H Absolute Nucleated RBC 0.00 0.00 Immature Gran % 0 0 Nucleated RBC % 0 0 PT 10.3 INR 1.0 APTT 22.9 Sodium 142 141 Potassium 3.0 L 4.3 D Chloride 105 106 Carbon Dioxide 23.2 25.0 Anion Gap 14 10 BUN 13 11 Creatinine 1.2 1.0 Estim Creat Clear Calc 87.5 103.4 eGFR > 60 > 60 BUN/Creatinine Ratio 11 L 11 L Glucose [address] Glu mg/dL 108 Hemoglobin A1c 5.4 Calculated Osmolality 285 282 Calcium 9.7 8.8 Corrected Calcium 9.7 8.8 Magnesium 2.2 Total Bilirubin 1.1 1.3 H AST 48 H 42 H ALT 71 H 63 H Alkaline Phosphatase 175 H 155 H D Troponin I < 0.020 B-Natriuretic Peptide 57 Total Protein 7.5 6.8 Albumin 4.8 4.3 D Globulin 2.7 2.5 Albumin/Globulin Ratio 1.8 1.7 Triglycerides 49 Cholesterol 201 H LDL Cholesterol, Calc 105 HDL Cholesterol 86 H Cholesterol/HDL Ratio 2.3 L TSH 0.75 Ur Collection Type Clean Catch Urine Color Lt-Yellow Urine Clarity Clear Urine pH 7.0 Ur Specific [place] 1.043 H Urine Protein Trace Urine Glucose (UA) Trace Urine Ketones Negative Urine Blood 2+ A Urine Nitrite Negative Urine Bilirubin Negative Urine Urobilinogen (Auto) Negative Ur Leukocyte Esterase Negative Urine RBC 40 H Urine WBC 1 Ur Squamous Epith Cells 0 Urine Bacteria None Ur Culture Indicated? Not Indicated Urine Opiates Screen Negative Urine Fentanyl Screen Negative Ur Barbiturates Screen Negative U Amphetamin/Meth Scrn Negative U Benzodiazepines Scrn Negative U Cocaine Metab Screen Negative U Marijuana (THC) Screen Negative Ethyl Alcohol < 3.0
[2025-11-03] MEDS: ATORVASTATIN CALCIUM 20 MG TABLET 80 MG PO (19:58)
[2025-11-03 20:00] VITALS: BP 182/130; PULSE 70; PULSE 76; RESP 15; TEMP 37.1; O2SAT 93
[2025-11-04] VITALS (9 sets, daily range): BP systolic 148–180; BP diastolic 108–127; PULSE 60–92; RESP 16–20; TEMP 36.1–37.1; O2SAT 95–99; BMI 29.7
[2025-11-04 05:31] LABS: Basophils # (Auto) 0.1 Thou/mm3 (0.0-0.2); Basophils % (Auto) 2 % (0-2.5); Eosinophils # (Auto) 0.2 Thou/mm3 (0.0-0.5); Eosinophils % (Auto) 3 % (0-10); Hematocrit 46.5 % (41.0-53.0); Hemoglobin 15.3 g/dL (13.5-16.0); Immature Granulocytes Auto 0.02 Thou/mm3 (0.00-0.00); Lymphocytes # (Auto) 1.2 Thou/mm3 (1.0-4.8); Lymphocytes % (Auto) 20 % (10-50); Mean Corpuscular HGB Conc 32.9 g/dl (31.0-37.0); Mean Corpuscular Hemoglobin 30.0 pg (25.0-35.0); Mean Corpuscular Volume 91 fL (80-100); Monocytes # (Auto) 0.6 Thou/mm3 (0.0-0.8); Monocytes % (Auto) 10 % (0-12); Neutrophils # (Auto) 4.0 Thou/mm3 (1.8-7.7); Neutrophils % (Auto) 65 % (37-80); Nucleated Red Blood Cell # 0.00 Thou/mm3 (0.00-0.00); Nucleated Red Blood Cell % 0 /100 WBC (0); Platelet Count 240 Thou/mm3 (140-440); RDW Standard Deviation 44.8 fL (35.1-43.9); Red Blood Count 5.10 Miln/mm3 (4.50-5.90); White Blood Count 6.1 Thou/mm3 (3.8-10.6)
[2025-11-04 06:06] LABS: Alanine Aminotransferase 57 U/L (10-49); Albumin, Serum 4.2 gm/dL (3.5-5.0); Albumin/Globulin Ratio 1.7 (1.2-2.2); Alkaline Phosphatase 146 U/L (46-116); Anion Gap 10 (7-16); Aspartate Amino Transferase 33 U/L (0-34); BUN/Creatinine Ratio 8 Ratio (12-20); Bilirubin,Total 2.0 mg/dL (0.3-1.2); Blood Urea Nitrogen 9 mg/dL (9-23); Calcium 9.2 mg/dL (8.3-10.6); Calcium (Corrected) 9.2 mg/dL (8.5-10.1); Carbon Dioxide 25.6 mMol/L (20.0-31.0); Chloride 106 mMol/L (98-107); Creatinine (Component) 1.1 mg/dL (0.6-1.3); Estimated Creatinine Clearance 94.2 mL/min (>60); Globulin 2.5 gm/dL (2.3-3.5); Glucose 93 mg/dL (74-106); Osmolality,Calculated 281 (275-295); Potassium 4.1 mMol/L (3.4-5.1); Sodium 142 mMol/L (136-145); Total Protein 6.7 gm/dL (5.7-8.2); eGFR > 60 See Note
[2025-11-04 06:20] LABS: Cardiac Risk Estimate 2.5 RATIO (4.0-6.7); Cholesterol 189 mg/dL (132-200); HDL Cholesterol 77 mg/dL (40-60); LDL Cholesterol,Calculated 97 mg/dL (0-130); Triglycerides 75 mg/dL (30-150)
[2025-11-04] MEDS: ENOXAPARIN SOD INJ 40 MG/0.4 ML SYRINGE SC (08:58)
[2025-11-04] MEDS: CLOPIDOGREL BISULFATE 75 MG TABLET PO (08:58)
[2025-11-04] MEDS: ASPIRIN EC 81 MG TABEC PO (08:58)
[2025-11-04] MEDS: LOSARTAN POTASSIUM 25 MG TABLET 100 MG PO (08:59)
--- NOTE | 2025-11-04 09:59 | ESPR_ITS ---
Documentation for date of: 11/04/25 Subjective Subjective Interval history: Patient seen at bedside this morning. He reports doing well overall with no new neurologic symptoms. He denies dizziness, headache, vision changes, weakness, numbness, or tingling. Speech remains normal. He continues to have residual left facial droop, unchanged. He is eating without difficulty and denies trouble swallowing. No chest pain, shortness of breath, abdominal pain, nausea, vomiting, or jaundice. Main focus today is blood pressure control and to obtain neuro recs. Exam Vital Signs Temp Pulse Resp BP Pulse Ox O2 Del Method 98.7 F 78 20 172/118 H 98 Room Air 11/04/25 04:00 11/04/25 08:59 11/04/25 04:00 11/04/25 08:59 11/04/25 04:00 11/04/25 04:00 Narrative Exam General: Awake, alert, in no acute distress HEENT: Pupils equal and reactive, EOMI Neck: Supple, no JVD Cardiac: Regular rate and rhythm, no murmurs Lungs: Clear to auscultation bilaterally Abdomen: Soft, non-tender, non-distended Extremities: No edema Neurologic: Alert and oriented ?3, persistent left facial droop, speech clear without dysarthria, strength 5/5 in all extremities, sensation grossly intact with mild residual decreased sensation on left face, no pronator drift Skin: Warm and dry Objective Labs 11/04/25 05:14 11/04/25 05:14 Labs: Laboratory Results - last 24 hr 11/04/25 05:14 WBC 6.1 RBC 5.10 Hgb 15.3 Hct 46.5 MCV 91 MCH 30.0 MCHC 32.9 RDW Std Deviation 44.8 H Plt Count 240 Neut % (Auto) 65 Lymph % (Auto) 20 Early % (Auto) 10 Eos % (Auto) 3 Baso % (Auto) 2 Neut # (Auto) 4.0 Lymph # (Auto) 1.2 Early # (Auto) 0.6 Eos # (Auto) 0.2 Baso # (Auto) 0.1 Immature Gran # (Auto) 0.02 H Absolute Nucleated RBC 0.00 Immature Gran % 0 Nucleated RBC % 0 Sodium 142 Potassium 4.1 Chloride 106 Carbon Dioxide 25.6 Anion Gap 10 BUN 9 Creatinine 1.1 Estim Creat Clear Calc 94.2 eGFR > 60 BUN/Creatinine Ratio 8 L Glucose 93 Calculated Osmolality 281 Calcium 9.2 Corrected Calcium 9.2 Total Bilirubin 2.0 H D AST 33 ALT 57 H Alkaline Phosphatase 146 H Total Protein 6.7 Albumin 4.2 Globulin 2.5 Albumin/Globulin Ratio 1.7 Triglycerides 75 Cholesterol 189 LDL Cholesterol, Calc 97 HDL Cholesterol 77 H Cholesterol/HDL Ratio 2.5 L Quality Measures Quality Measures VTE prophylaxis and stroke Suspected type of Stroke: Acute Ischemic Last known well (date): 10/29/25 Tenecteplase given: Reason(s) Tenecteplase not given: Outside the time window not given Rehab services: PT evaluation ordered VTE Prophylaxis: pharmaceutical Antithrombotic by day 2:: ordered Statin ordered: >75 y/o moderate or high intensity dose Anticoagulation ordered for A-fib or flutter (current or hx): not indicated Assessment & Plan Assessment Current Active Medications: Generic Name Dose Route Start Last Admin Trade Name Freq PRN Reason Stop Dose Admin Acetaminophen 650 mg 11/02/25 21:51 Acetaminophen 325 Mg Tablet PO 12/02/25 21:50 Q6H PRN Fever >101.5 Aspirin 81 mg 11/03/25 09:00 11/04/25 08:58 Aspirin Ec 81 Mg Tabec PO 12/03/25 08:59 81 mg QDAY JAG Administration Atorvastatin Calcium 80 mg 11/02/25 21:55 11/03/25 19:58 Atorvastatin Calcium 20 Mg Tablet PO 12/02/25 21:54 80 mg HS JAG Administration Clopidogrel Bisulfate 75 mg 11/03/25 09:00 11/04/25 08:58 Clopidogrel Bisulfate 75 Mg Tablet PO 12/03/25 08:59 75 mg QDAY JAG Administration Enoxaparin Sodium 40 mg 11/03/25 09:00 11/04/25 08:58 Enoxaparin Sod Inj 40 Mg/0.4 Ml Syringe SC 11/17/25 08:59 40 mg QDAY JAG Administration Labetalol HCl 10 mg 11/02/25 23:12 11/04/25 07:38 Labetalol Inj 5 Mg/Ml Vial 4 Ml IVP 12/03/25 00:00 10 mg Q2HR PRN Administration SBP>220 or DBP>120 Losartan Potassium 100 mg 11/04/25 09:00 11/04/25 08:59 Losartan Potassium 25 Mg Tablet PO 12/04/25 08:59 100 mg QDAY JAG Administration Ondansetron HCl 4 mg 11/02/25 21:51 Ondansetron Inj 2 Mg/Ml Inj 2 Ml IVP 12/02/25 21:50 Q4HR PRN NAUSEA OR VOMITING Plan 50-year-old male with history of uncontrolled hypertension admitted for acute ischemic stroke (right basal ganglia infarct on MRI) with prior subacute left facial droop, now neurologically stable without new deficits, currently focused on blood pressure optimization, with echo and neurology recommendations pending. # Acute Ischemic CVA, Right Basal Ganglia # MRI White Matter Changes Concern for Demyelinating Disease 50M with one week of left facial droop and acute dizziness/slurred speech, NIHSS 4 CTA findings with 90% stenosis P2 segment right posterior cerebral artery CT fimdings with Suspicious for 3 mm old infarct left brainstem pontine level LDL 105, above goal for secondary stroke prevention. MRI shows 4 mm acute infarct in right basal ganglia. MRI notes prominent white matter signal changes; clinical significance unclear at this time. Patient neurologically stable with no new deficits. Plan: * Continue Aspirin 81 mg daily * Continue Clopidogrel 75 mg daily * Continue atorvastatin 80 mg nightly * Telemetry monitoring * Neuro checks Q4h * Neurology recommendations pending (including MRI demyelinating findings) # Hypertensive Urgency # Uncontrolled Hypertension Presented with severe hypertension likely longstanding Elevated BP this morning (176/121) Home medication resumed. Plan: * Constinued Losartan 100 mg daily (home dose) * Started amlodipine 5 mg daily * Monitor BP closely # Hyperbilirubinemia # Mild Transaminitis, Improving Total bilirubin increased to 2.0 with normal AST, downtrending ALT and alkaline phosphatase, asymptomatic. Plan: * Trend CMP # Hypokalemia, Resolved Initial potassium 3.0, corrected. today K 4.1 Plan: * No further repletion needed * Continue to monitor BMP Health Maintenance: Diet: Dysphagia 3 DVT Prophylaxis: Lovenox Code Status: Full code Disposition: Pending echocardiogram and neurology recommendations ----- Plan discussed with attending physician Dr. Charo Myrick MD PGY-1 Internal Medicine Attending Provider Attestation/Addendum I have seen and examined the patient. I was physically present for the peres portions of the services provided including history, physical exam, diagnosis, treatment plans and orders. I agree with assessment and plan of care as documented by residents. Patient seen and examined at bedside this morning. No acute overnight events. Underwent MRI yesterday, showed 4 mm acute infarct in right basal ganglia along with concern for demyelinating disease. Past speech therapy evaluation. Physical therapy evaluated the patient, recommended home health PT. Blood pressure was high this morning, restarted his home losartan. Continues to be on aspirin, Plavix and statin. Awaiting echocardiography results. Even though this this note was carefully revised there may still be minor errors in ultrasound specialist due to voice recognition software. Brendan Mancilla MD
[2025-11-04] MEDS: ATORVASTATIN CALCIUM 20 MG TABLET 80 MG PO (20:28)
--- NOTE | 2025-11-04 23:56 | ESPR_ITS ---
Documentation for date of: 11/04/25 Subjective Subjective Interval history: Patient was seen in telemetry today, no new symptoms reported, facial weakness improving. Exam - Neurology Vital Signs Temp Pulse Resp BP Pulse Ox O2 Del Method 97.4 F 75 18 171/127 H 95 Room Air 11/04/25 23:50 11/04/25 23:50 11/04/25 20:00 11/04/25 23:50 11/04/25 23:50 11/04/25 23:50 Narrative Exam GEN. APPEARANCE: The patient is alert awake oriented X-3 Patient has good eye contact. Patient is cooperative. HEENT: Normocephalic, atraumatic and nontender. Pupils are equal and reactive. Oral mucosa is moist. NECK: Supple, nontender, no meningismus, no JVD. There is no thyromegaly and no lymphadenopathy. CHEST: Nontender on palpation no deformity and no crepitus. CARDIOVASCULAR: Heart regular rhythm, no murmur or gallop rub or extra beats. LUNGS: Clear to auscultation bilaterally with symmetrical chest rise. No laboring tachypnea or wheezing. No intercostal subcostal retraction. No rales and no rhonchi. ABDOMEN: Soft, flat, mild tenderness diffusely, no guarding or rebound tenderness. There are no abnormal masses palpated. No pulsatile masses or bruits. Active and normal bowel sounds. EXTREMITIES: Normal inspection and palpation. No edema. No cyanosis. Patient is able to move all 4 extremities well SKIN: Warm and dry, no rashes noted. MUSCULOSKELETAL: No lumbar or midline bony tenderness. There is no CVA tenderness. No paraspinal muscle spasm or tenderness. NEURO: Cranial nerves II through XII grossly intact with the exception of mild UMN facial weakness on the left. There are no other focal neurologic deficits noted. GCS is 15 PSYCHIATRIC: Patient is in normal mood and affect, cooperative. LYMPHATICS: No major lymphadenopathy noted. Objective Labs 11/05/25 05:35 11/04/25 05:14 Labs: Laboratory Results - last 24 hr 11/04/25 05:14 WBC 6.1 RBC 5.10 Hgb 15.3 Hct 46.5 MCV 91 MCH 30.0 MCHC 32.9 RDW Std Deviation 44.8 H Plt Count 240 Neut % (Auto) 65 Lymph % (Auto) 20 [place] % (Auto) 10 Eos % (Auto) 3 Baso % (Auto) 2 Neut # (Auto) 4.0 Lymph # (Auto) 1.2 [place] # (Auto) 0.6 Eos # (Auto) 0.2 Baso # (Auto) 0.1 Immature Gran # (Auto) 0.02 H Absolute Nucleated RBC 0.00 Immature Gran % 0 Nucleated RBC % 0 Sodium 142 Potassium 4.1 Chloride 106 Carbon Dioxide 25.6 Anion Gap 10 BUN 9 Creatinine 1.1 Estim Creat Clear Calc 94.2 eGFR > 60 BUN/Creatinine Ratio 8 L Glucose 93 Calculated Osmolality 281 Calcium 9.2 Corrected Calcium 9.2 Total Bilirubin 2.0 H D AST 33 ALT 57 H Alkaline Phosphatase 146 H Total Protein 6.7 Albumin 4.2 Globulin 2.5 Albumin/Globulin Ratio 1.7 Triglycerides 75 Cholesterol 189 LDL Cholesterol, Calc 97 HDL Cholesterol 77 H Cholesterol/HDL Ratio 2.5 L Assessment & Plan Assessment and plan (1) CVA (cerebral vascular accident): Status: Acute Assessment and plan: MRI brain: showed tiny acute infarct in the basal ganglia on the right CHronic periventricular wm changes from uncontrolled HTN and not demyelination. Needs aggressive vascular risk factors reduction with better compliance. DAPT and statin with close monitoring of his LFT. FU with rest of the stroke w/u (2) Hypertensive emergency: Status: Acute Assessment and plan: needs aggressive BP control.
[2025-11-05] VITALS (11 sets, daily range): BP systolic 141–171; BP diastolic 101–127; PULSE 70–94; RESP 17–18; TEMP 36.1–36.8; O2SAT 94–95; BMI 29.2
[2025-11-05] MEDS: LABETALOL 100 MG TABLET PO (04:09)
[2025-11-05 06:41] LABS: Basophils # (Auto) 0.1 Thou/mm3 (0.0-0.2); Basophils % (Auto) 1 % (0-2.5); Eosinophils # (Auto) 0.3 Thou/mm3 (0.0-0.5); Eosinophils % (Auto) 4 % (0-10); Hematocrit 47.7 % (41.0-53.0); Hemoglobin 16.2 g/dL (13.5-16.0); Immature Granulocytes Auto 0.03 Thou/mm3 (0.00-0.00); Lymphocytes # (Auto) 1.4 Thou/mm3 (1.0-4.8); Lymphocytes % (Auto) 16 % (10-50); Mean Corpuscular HGB Conc 34.0 g/dl (31.0-37.0); Mean Corpuscular Hemoglobin 31.0 pg (25.0-35.0); Mean Corpuscular Volume 91 fL (80-100); Monocytes # (Auto) 0.8 Thou/mm3 (0.0-0.8); Monocytes % (Auto) 9 % (0-12); Neutrophils # (Auto) 5.9 Thou/mm3 (1.8-7.7); Neutrophils % (Auto) 69 % (37-80); Nucleated Red Blood Cell # 0.00 Thou/mm3 (0.00-0.00); Nucleated Red Blood Cell % 0 /100 WBC (0); Platelet Count 277 Thou/mm3 (140-440); RDW Standard Deviation 44.7 fL (35.1-43.9); Red Blood Count 5.22 Miln/mm3 (4.50-5.90); White Blood Count 8.6 Thou/mm3 (3.8-10.6)
[2025-11-05 07:36] LABS: Alanine Aminotransferase 46 U/L (10-49); Albumin, Serum 4.3 gm/dL (3.5-5.0); Albumin/Globulin Ratio 1.7 (1.2-2.2); Alkaline Phosphatase 147 U/L (46-116); Anion Gap 11 (7-16); Aspartate Amino Transferase 29 U/L (0-34); BUN/Creatinine Ratio 10 Ratio (12-20); Bilirubin,Total 1.5 mg/dL (0.3-1.2); Blood Urea Nitrogen 11 mg/dL (9-23); Calcium 9.3 mg/dL (8.3-10.6); Calcium (Corrected) 9.3 mg/dL (8.5-10.1); Carbon Dioxide 27.1 mMol/L (20.0-31.0); Chloride 103 mMol/L (98-107); Creatinine (Component) 1.1 mg/dL (0.6-1.3); Estimated Creatinine Clearance 93.6 mL/min (>60); Globulin 2.5 gm/dL (2.3-3.5); Glucose 96 mg/dL (74-106); Osmolality,Calculated 280 (275-295); Potassium 4.0 mMol/L (3.4-5.1); Sodium 141 mMol/L (136-145); Total Protein 6.8 gm/dL (5.7-8.2); eGFR > 60 See Note
[2025-11-05] MEDS: ENOXAPARIN SOD INJ 40 MG/0.4 ML SYRINGE SC (09:53)
[2025-11-05] MEDS: ASPIRIN EC 81 MG TABEC PO (09:54)
[2025-11-05] MEDS: LOSARTAN POTASSIUM 25 MG TABLET 100 MG PO (09:54)
[2025-11-05] MEDS: CLOPIDOGREL BISULFATE 75 MG TABLET PO (09:54)
--- NOTE | 2025-11-05 10:13 | ESDS_ITS ---
<Statement entered by Yousuf Silva MD - 11/15/25 08:25> I reviewed above note and agree with findings and plans. I have also personally examined the patient with medicine team and went over assessment and plan with medical team including analytics intern and resident physician. Planned Discharge Date 11/05/25 DS: Providers Provider Date of admission: 11/02/25 21:51 Primary care physician: Parag Cho MD Admitting Provider: De Avalos MD Attending Provider on Admission: De Avalos MD Consults: 11/02/25 20:38 Consult to Neurology / Tele-Neurology Routine Comment: Consulting Provider: [facility] 11/02/25 21:56 Referral Physical Therapy Routine Comment: Physician Instructions: Referral Speech Therapy Routine Comment: 11/03/25 07:03 Consult to Neurology / Tele-Neurology Routine Comment: Consulting Provider: Mejia Kaminski Attending Provider on DC: Yousuf Silva MD Discharging Provider: Lyudmila Myrick MD DS: Diagnosis Problem List Completed Was Problem List Reviewed/Reconciled?: Yes Hospital Course Hospital Course Hospital course: 50-year-old male with a history of uncontrolled hypertension who presented with one week of left facial droop and acute onset dizziness and slurred speech on the day of admission. On arrival, he was found to be severely hypertensive with blood pressures up to 246/154. Initial CT head showed no acute hemorrhage, and CTA head and neck showed no large vessel occlusion. He was not a candidate for thrombolytics due to the subacute nature of symptoms. Teleneurology was consulted and recommended permissive hypertension, initiation of dual antiplatelet therapy, and admission for stroke workup. MRI brain subsequently demonstrated a tiny acute infarct in the right basal ganglia. Prominent periventricular white matter changes were noted and, after neurology evaluation, were felt to be chronic changes related to longstanding uncontrolled hypertension rather than demyelinating disease. The patient remained neurologically stable throughout hospitalization with gradual improvement in facial weakness and no new deficits. Blood pressure management was optimized during admission. Home losartan was resumed and amlodipine was uptitrated for improved control. Dual antiplatelet therapy with aspirin and clopidogrel was continued, and high-intensity statin th erapy was initiated for secondary stroke prevention. Mild transaminitis and hyperbilirubinemia were noted early in admission and improved with monitoring, with liver enzymes normalizing prior to discharge. Transthoracic echocardiogram was ordered as part of the stroke workup and is normal with EF of 55-60% and negative for PFO. Neurology recommended aggressive vascular risk factor modification and close outpatient follow-up. The patient was clinically stable and deemed appropriate for discharge home. Diagnosis during admission: # Acute Ischemic CVA, Right Basal Ganglia # Hypertensive Urgency # Uncontrolled Hypertension # Hyperbilirubinemia # Mild Transaminitis, Improving # Hypokalemia, Resolved Discharge Instructions: Follow up with primary care physician within 1 week of discharge Follow up with Cardiology within 1-2 weeks of discharge Follow up with Neurology within 1-2 weeks of discharge Instructions have been explained to the patient with regards to their medications and how to take them. Patient was able to explain back to physician and nursing staff how to take their medications. Patient expressed understanding with instructions. New Medications: You have been prescribed amlodipine 10mg everyday, aspirin 81mg everyday, plavix 75mg every day, atorvastatin 40mg everyday, losartan-HCTZ 100mg-12.5mg everyday. Continue to take the rest of your medications as prescribed by your primary care physician. Patient has been explained that should any symptoms recur or worsen patient is instructed to return to the Emergency Department. ----- Plan discussed with attending physician Dr. Shira Myrick MD PGY-1 Internal Medicine Time Spent with Patient Time attestation: Total time spent providing and/or coordinating discharge services: Time spent: Greater than 30 minutes Home Health Home Health Referral Orders: 11/04/25 08:07 Home Health Referral Routine Reason For Exam: CVA Home-Bound The patient must either because of illness or injury, need the aid of supportive devices such as crutches, canes, wheelchairs, and walkers; the use of special transportation; or the assistance of another person in order to leave their place of residence; OR have a condition such that leaving his or her home is medically contraindicated. In addition, the patient also meets the following criteria: patient is normally unable to leave the home and leaving home requires considerable taxing effort. Addendum to Home Health Certification Practitioner's Certification: I certify that the patient has been under my care in the hospital and the care of attending physician (see below). We had a [id number] encounter on (see date below). My clinical findings indicate that the patient is home bound per the above criteria and the Home Health Services noted in these orders are medically necessary. The primary reason for the [id number] encounter is related to the fact that the patient requires home health services. Date Certifying [id number] Physician Encounter: 11/02/25 Physician's Name who will Assume Oversight for Services: Parag Cho Physician's Phone No.who will Assume Oversight for Service: HARNESS [employer]TER - Community Resources: No PT to Evaluate: Yes PT to evaluate and provide a treatmnet plan to increase patient's mobility and strength. Wound Care: No IV Therapy: No RN Safety Evaluation: Yes RN to evaluate and create a plan of care that will produce positive outcomes. Palliative Treatment: No Palliative treatment and evaluate the need for hospice. Home Health Aide - Personal Care: No Home Health Aide to assist with any ADL's. Exam Vital Signs Temp Pulse Resp BP Pulse Ox O2 Del Method 97.3 F 79 18 142/101 H 95 Room Air 11/05/25 08:00 11/05/25 09:54 11/05/25 08:00 11/05/25 09:54 11/05/25 08:00 11/05/25 08:00 Narrative Exam General: Awake, alert, in no acute distress HEENT: Pupils equal and reactive, EOMI Neck: Supple, no JVD Cardiac: Regular rate and rhythm, no murmurs Lungs: Clear to auscultation bilaterally Abdomen: Soft, non-tender, non-distended Extremities: No edema Neurologic: Alert and oriented ?3, improving left facial droop, speech clear without dysarthria, strength 5/5 in all extremities, sensation grossly intact with mild residual decreased sensation on left face, no pronator drift Skin: Warm and dry Discharge Plan Plan Patient Disposition: HOME (Self Care) Care Plan Goals: Follow up with primary care physician within 1 week of discharge Follow up with Cardiology within 1-2 weeks of discharge Follow up with Neurology within 1-2 weeks of discharge Instructions have been explained to the patient with regards to their medi cations and how to take them. Patient was able to explain back to physician and nursing staff how to take their medications. Patient expressed understanding with instructions. New Medications: You have been prescribed amlodipine 10mg everyday, aspirin 81mg everyday, plavix 75mg every day, atorvastatin 40mg everyday, losartan-HCTZ 100mg-12.5mg everyday Continue to take the rest of your medications as prescribed by your primary care physician. Patient has been explained that should any symptoms recur or worsen patient is instructed to return to the Emergency Department. Prescriptions/Referrals Prescriptions/Med Rec: New amlodipine 10 mg tablet 10 mg PO QDAY Qty: 30 0RF aspirin 81 mg capsule 81 mg PO QDAY Qty: 30 0RF clopidogrel [Plavix] 75 mg tablet 75 mg PO QDAY Qty: 30 0RF atorvastatin [Lipitor] 40 mg tablet 40 mg PO QDAY Qty: 30 0RF losartan-hydrochlorothiazide 100-12.5 mg tablet 1 tab PO QDAY Qty: 30 0RF Referrals: Parag Cho MD [Primary Care Provider, Family Practice] Patient/Caregiver Discharge Instructions Education Materials: Using Blood Thinners Anticoagulants, Stroke Prevention Activity, Arm Care After a Stroke, ED Stroke, Completed, ED Hypokalemia Print Language: Indian Stand Alone Forms: [employer] Info., Patient Portal Info Letter Discharge Order Discharge Orders: Discharge (Routine); Ordered 11/05/25 Ordered By: Lyudmila Myrick Quality Discharge Quality Measures VTE prophylaxis
--- NOTE | 2025-11-07 11:23 | PC.CC ---
Spoke with patient regarding his order for home health upon discharge. Informed pt he does not meet criteria for home health because he has not seen his primary physician in 2 years. Instructed him to call primary physician for a home health referral if he changes his mind and wants home health. Pt states, I don't want anyone coming into my home .
== END 2025-11-05 14:15 | disposition home or self-care (01) | DRG 65 ==
LOC: SERX 22:17 → SERHOLD 22:20 → S2NX 23:30 → S3SX 11-04 18:37
PROVIDERS: Admitting Provider Student in an Organized Health Care Education/Training Program; Emergency Provider Emergency Medicine; PCP Family Medicine; Visit Provider Student in an Organized Health Care Education/Training Program
DX: I63.89 Other cerebral infarction (principal); I16.1 Hypertensive emergency; R17 Unspecified jaundice; I10 Essential (primary) hypertension; R29.810 Facial weakness; R47.81 Slurred speech; R29.704 NIHSS score 4; R74.01 Elevation of levels of liver transaminase levels; E87.6 Hypokalemia; Z79.02 Long term (current) use of antithrombotics/antiplatelets; Z79.82 Long term (current) use of aspirin; Z79.899 Other long term (current) drug therapy
CPT/HCPCS: 36415; 70450; 70496; 70498; 70544; 71045; 80053; 80061; 80307; 80320; 81001; 83036; 83735; 83880; 84443; 84484; 85025; 85610; 85730; 92526; 92610; 93005; 93225; 93306; 96374; 97163; 99285; A4649; J1650; J1920; J7120; Q9967; A9270; G0480